=== PATIENT | male | born 1960 | race Two or more races ===

== ENCOUNTER 2017-11-09 13:40 | Emergency (ER) | payer BC, MEDICAID ==
[~2017-11-09] VITALS: Ht 172.7 cm; Wt 89.8 kg
[~2017-11-09 13:40] MED LIST: AMLO10TA6 PO; ASPI-1169 PO; METO25TA6 PO; VALS160T2 PO
--- NOTE | 2017-11-09 14:04 | NUR ---
PT PRESENTED TO THE ER WITH A C/O NAUSEA W/DRY HEAVING X 1 YEAR THAT HAS BEEN GETTING WORSE OVER THE LAST 4 DAYS. PT STATED THAT HE IS A FORMER IV DRUG USER THAT HAS BEEN SOBER FOR 4 YEARS. PT IS C/O INTERMITTENT DIZZINESS, FREQUENT URINATION AT NIGHT, NAUSEA WITH DRY HEAVING, CONSTIPATION, AND INTERMITTENT DIAPHORESIS. 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 PT HAS A PMD THROUGH THE CLIN, BUT IS NOT ABLE TO GET IN TO SEE THE PMD WHEN HE NEEDS TO. PT IS ON THE MONITOR AND CONTINUOUS PULSE OX. BILATERAL WHEEZES NOTED. PT IS A 1/2 PACK/DAY SMOKER AND IS NOT REQUESTION CESSATION INFORMATION AT THIS TIME.
--- NOTE | 2017-11-09 14:05 | NUR ---
EKG DONE AT THE BEDSIDE.
[2017-11-09] MEDS ORDERED: ONDANSETRON 4 MG TAB.RAPDIS ONE (14:09)
--- NOTE | 2017-11-09 14:10 | NUR ---
CXR DONE AT THE BEDSIDE.
--- NOTE | 2017-11-09 14:15 | NUR ---
CALLED RT RE: BREATHING TX.
[2017-11-09] MEDS ORDERED: IPRATROPIUM NEB FS 0.5 MG/2.5 ML AMPUL.NEB ONE (14:27)
[2017-11-09] MEDS ORDERED: ALBUTEROL FS 2.5 MG/3 ML VIAL.NEB ONE (14:27)
[2017-11-09] MEDS ORDERED: ONDANSETRON 4 MG TAB.RAPDIS PO ONE (14:30)
[2017-11-09] MEDS ORDERED: ALBUTEROL FS 2.5 MG/3 ML VIAL.NEB NEB ONE (14:30)
[2017-11-09] MEDS ORDERED: IPRATROPIUM NEB FS 0.5 MG/2.5 ML AMPUL.NEB NEB ONE (14:30)
[2017-11-09 14:39] LABS: BASOPHILS % (AUTO) 0.5 % (0.0-2.0); EOSINOPHILS % (AUTO) 0.7 % (0.0-6.0); HEMATOCRIT 45 % (39-51); HEMOGLOBIN 15.1 g/dL (13.5-17.5); LYMPHOCYTES # (AUTO) 1.8 /CMM (0.8-4.8); LYMPHOCYTES % (AUTO) 31.9 % (20.0-44.0); MEAN CORPUSCULAR HGB CONC 34 g/dl (31.0-36.0); MEAN CORPUSCULAR VOLUME 90 fL (80-96); MONOCYTES # (AUTO) 0.6 /CMM (0.1-1.30); MONOCYTES % (AUTO) 10.4 % (2.0-12.0); NEUTROPHILS # (AUTO) 3.2 /CMM (1.8-8.9); NEUTROPHILS % (AUTO) 56.5 % (43.0-81.0); PLATELET COUNT (AUTO) 124 /CMM (150-450); RDW COEFFICIENT OF VARIATION 13.1 (11.5-15.0); RED BLOOD CELL COUNT(AUTO) 4.94 MIL/uL (4.5-6.0); WHITE BLOOD COUNT (AUTO) 5.6 K/uL (4.3-11.0)
[2017-11-09 14:49] LABS: CALCIUM, SERUM 9.5 mg/dL (8.5-10.1); POTASSIUM 3.8 mmol/L (3.5-5.1)
[2017-11-09 14:55] LABS: ALBUMIN 3.9 g/dL (3.4-5.0); BILIRUBIN,DIRECT 0.3 mg/dL (0.0-0.2); BILIRUBIN,TOTAL 0.7 mg/dL (0.2-1.0); TOTAL PROTEIN, SERUM 8.4 g/dL (6.4-8.2)
[2017-11-09 15:33] VITALS: BP 163/97
--- NOTE | 2017-11-09 15:33 | NUR ---
Patient discharged to home in stable condition. Written and verbal after care instructions given. Patient verbalizes understanding of instruction AND RX. PT REC'D A COPY OF ALL LABS AND IMAGING FINDINGS. PT AMBULATED OUT WITH A CANE AND PT'S MOTHER IS DRIVING PT HOME. VSS. NAD NOTED.
== END 2017-11-09 15:33 | disposition home or self-care (01) ==
LOC: ER 13:50
DX: R61 Generalized hyperhidrosis (principal); R11.0 Nausea; I10 Essential (primary) hypertension; F10.10 Alcohol abuse, uncomplicated; F17.200 Nicotine dependence, unspecified, uncomplicated; Z79.82 Long term (current) use of aspirin
CPT/HCPCS: 36415; 71045; 80048; 80076; 84484; 85025; 93005; 94640; 99285; A4606; Q0162; Z7610

== ENCOUNTER 2019-04-12 13:31 | Emergency (ER) | payer MEDICAID ==
[~2019-04-12] VITALS: Ht 175.3 cm; Wt 88.9 kg
[~2019-04-12 13:31] MED LIST changes: -AMLO10TA6 PO; +AMLO10TA7 PO
[2019-04-12 13:37] VITALS: BP 140/66
--- NOTE | 2019-04-12 15:25 | NUR ---
PT TO RADIOLOGY DEPT VIA [facility].
[2019-04-12] MEDS ORDERED: IV NS 0.9% 500 ML BAG IV ONE (15:30)
[2019-04-12] MEDS ORDERED: CYCLOBENZAPRINE 10 MG TABLET PO ONE (15:30)
[2019-04-12] MEDS ORDERED: KETOROLAC TROMETHAMINE INJ 30 MG/ML VIAL IV ONE (15:30)
[2019-04-12] MEDS ORDERED: KETOROLAC TROMETHAMINE INJ 60 MG/2 ML VIAL IM ONE ×2 (16:00→16:04)
[2019-04-12] MEDS ORDERED: CYCLOBENZAPRINE 10 MG TABLET ONE (16:05)
[2019-04-12] MEDS ORDERED: LIDOCAINE HCL/MPF 1% 30 ML VIAL IJ ONE (18:06)
[2019-04-12] MEDS ORDERED: LIDOCAINE HCL/PF 1% 30 ML VIAL TP ONE (18:30)
== END 2019-04-12 18:55 | disposition home or self-care (01) ==
LOC: ER 13:36
DX: S39.012A Strain of muscle, fascia and tendon of lower back, initial encounter (principal); I10 Essential (primary) hypertension; F17.200 Nicotine dependence, unspecified, uncomplicated; Z98.890 Other specified postprocedural states; Z79.899 Other long term (current) drug therapy; Z79.82 Long term (current) use of aspirin; X50.1XXA Overexertion from prolonged static or awkward postures, initial encounter; Y93.89 Activity, other specified; Y92.89 Other specified places as the place of occurrence of the external cause; Y99.8 Other external cause status
CPT/HCPCS: 74176; 96372; 99284; J1885; J3490

== ENCOUNTER 2020-06-12 01:25 | Emergency (ER) | payer MEDICAID ==
[~2020-06-12] VITALS: Ht 174 cm; Wt 90.7 kg
[~2020-06-12 01:25] MED LIST changes: +AMLO-213 PO; -AMLO10TA7 PO
--- NOTE | 2020-06-12 01:25 | NUR ---
BIBEMS C/O UPPER ABDOMINAL PAIN WITH NAUSEA X2 WEEKS. PT REPORTS DRINKING ALCOHOL TO RELIEVE PAIN. PT AAOX4, DENIES SOB/CP. -SOB. PIV STARTED, BLOOD DRAWN, SENT TO LAB, BUSTER WADE. PENDING ER PROVIDER LEATHA
[2020-06-12 02:00] LABS: BASOPHILS % (AUTO) 0.8 % (0.0-2.0); EOSINOPHILS % (AUTO) 2.2 % (0.0-6.0); HEMATOCRIT 42 % (39-51); LYMPHOCYTES # (AUTO) 1.7 /CMM (0.8-4.8); LYMPHOCYTES % (AUTO) 30.1 % (20.0-44.0); MEAN CORPUSCULAR HGB CONC 34 g/dl (31.0-36.0); MEAN CORPUSCULAR VOLUME 104 fL (80-96); MONOCYTES # (AUTO) 0.6 /CMM (0.1-1.30); MONOCYTES % (AUTO) 9.8 % (2.0-12.0); NEUTROPHILS # (AUTO) 3.3 /CMM (1.8-8.9); NEUTROPHILS % (AUTO) 57.1 % (43.0-81.0); PLATELET COUNT (AUTO) 106 /CMM (150-450); WHITE BLOOD COUNT (AUTO) 5.7 K/uL (4.3-11.0)
[2020-06-12 02:23] LABS: CREATININE 0.8 mg/dL (0.6-1.3); POTASSIUM 3.3 mmol/L (3.5-5.1)
[2020-06-12] MEDS ORDERED: LIDOCAINE VISCOUS 2% UD 15 ML UDC ONE (02:25)
[2020-06-12] MEDS ORDERED: MAG HYDROX/AL HYDROX/SIMETH 30 ML UDC ONE (02:27)
[2020-06-12 02:36] LABS: BILIRUBIN,DIRECT 0.8 mg/dL (0.0-0.2); TOTAL PROTEIN, SERUM 7.8 g/dL (6.4-8.2)
[2020-06-12] MEDS ORDERED: LIDOCAINE VISCOUS 2% UD 15 ML UDC MM ONE (03:00)
[2020-06-12] MEDS ORDERED: MAG HYDROX/AL HYDROX/SIMETH 30 ML UDC PO ONE (03:00)
--- NOTE | 2020-06-12 03:30 | NUR ---
PT REPORTS "FEELING BETTER" AFTER GI COCKTAIL
[2020-06-12] MEDS ORDERED: KETOROLAC TROMETHAMINE INJ 30 MG/ML VIAL ONE (03:43)
[2020-06-12] MEDS ORDERED: KETOROLAC TROMETHAMINE INJ 60 MG/2 ML VIAL IM ONE (04:00)
--- NOTE | 2020-06-12 05:00 | NUR ---
PT CONT TO C/O OF ABD PAIN, AWARE. NEW MEDS ORDERED
[2020-06-12] MEDS ORDERED: METOCLOPRAMIDE HCL 10 MG/2 ML VIAL ONE (05:02)
[2020-06-12] MEDS ORDERED: IV NS 0.9% 1,000 ML IV ONE (05:30)
[2020-06-12] MEDS ORDERED: METOCLOPRAMIDE HCL 10 MG/2 ML VIAL IV ONE (05:30)
--- NOTE | 2020-06-12 06:51 | NUR ---
Patient discharged to home in stable condition. Written and verbal after care instructions given. Patient verbalizes understanding of instruction. IV removed. Catheter intact and site benign. Pressure and 4x4 applied to site. No bleeding noted.
[2020-06-12 06:54] VITALS: BP 191/114
== END 2020-06-12 06:54 | disposition home or self-care (01) ==
LOC: ER 01:27
DX: K86.1 Other chronic pancreatitis (principal); I10 Essential (primary) hypertension; Z86.19 Personal history of other infectious and parasitic diseases; Z79.82 Long term (current) use of aspirin; Z79.899 Other long term (current) drug therapy
CPT/HCPCS: 36415; 71045; 80048; 80076; 83690; 83880; 84484; 85025; 93005 ×2; 96361; 96372; 96374; 99285; J1885; J2765; J3490; J7030